=== PATIENT | female | born 1995 | race African-American/Black ===

== ENCOUNTER 2016-06-29 21:38 | Emergency (ER) | payer OTHER | END 2016-06-30 00:17 | disposition home or self-care (01) | LOC: ER1 21:38 | DX: J11.1 Influenza due to unidentified influenza virus with other respiratory manifestations (principal) | CPT/HCPCS: 87081; 87880; 99283 ==

== ENCOUNTER 2020-05-09 14:22 | Emergency (ER) | payer OTHER ==
[~2020-05-09 14:22] MED LIST: IBUPROFEN600 MG PO; LODINE CAP 300300 MG PO; MACROBID 100 M100 MG PO; NORFLEX 100 MG100 MG PO; TORADOL 10 MG T10 MG PO; ZOFRAN ODT 4 MG4 MG SL; ZOLOFT100 MG PO
[2020-05-09] MEDS ORDERED: NAPROSYN500 MG PO (17:18)
[2020-05-09] MEDS ORDERED: CYCLOBENZAPRINE10 MG PO (17:18)
== END 2020-05-09 17:56 | disposition home or self-care (01) ==
LOC: ER1 14:22
DX: S06.9X9A Unspecified intracranial injury with loss of consciousness of unspecified duration, initial encounter (principal); S39.012A Strain of muscle, fascia and tendon of lower back, initial encounter; F17.210 Nicotine dependence, cigarettes, uncomplicated; V43.52XA Car driver injured in collision with other type car in traffic accident, initial encounter; Y92.410 Unspecified street and highway as the place of occurrence of the external cause
CPT/HCPCS: 70450; 72100; 96372; 99284; J1885

== ENCOUNTER 2021-07-28 14:25 | Emergency (ER) | payer OTHER ==
[~2021-07-28 14:25] MED LIST changes: +CYCLOBENZAPRINE10 MG PO; +NAPROSYN500 MG PO
[2021-07-28 16:13] LABS: HEMOGLOBIN 11.8 gm/dl (12.3-15.3); RED BLOOD COUNT 3.66 M/UL (4.00-5.10); WHITE BLOOD COUNT 5.3 K/UL (4.5-11.0)
[2021-07-28 16:37] LABS: BUN/CREATININE RATIO 18 (0-10)
[2021-07-28] MEDS ORDERED: BUTALB-ACETAMI1 EAC1 PO (19:36)
[2021-07-28] MEDS ORDERED: PERCOCET 5/325 T1 EA PO (19:36)
[2021-07-28] MEDS ORDERED: ONDANSETRON ODT4 MG SL (19:46)
[2021-07-28] MEDS ORDERED: CEPHALEXIN500 M1 PO (19:46)
== END 2021-07-28 20:22 | disposition home or self-care (01) ==
LOC: ER1 14:25
PROVIDERS: Emergency Medicine
DX: O90.89 Other complications of the puerperium, not elsewhere classified (principal); G97.82 Other postprocedural complications and disorders of nervous system; G93.89 Other specified disorders of brain; N39.0 Urinary tract infection, site not specified; F17.200 Nicotine dependence, unspecified, uncomplicated; Z20.822 Contact with and (suspected) exposure to COVID-19; Y84.8 Other medical procedures as the cause of abnormal reaction of the patient, or of later complication, without mention of misadventure at the time of the procedure
CPT/HCPCS: 70450; 80053; 81001; 85025; 87086; 96374; 96375; 99284; J1200; J1885; J2270; J2765; U0002

== ENCOUNTER → 2021-08-18 | Outpatient (CLI) | payer OTHER ==
[~2021-08-18] MED LIST changes: +BUTALB-ACETAMI1 EAC1 PO; +CEPHALEXIN500 M1 PO; +ONDANSETRON ODT4 MG SL; +PERCOCET 5/325 T1 EA PO
== END ==
LOC: KOH-I 14:59
DX: S22.000A Wedge compression fracture of unspecified thoracic vertebra, initial encounter for closed fracture (principal); M47.814 Spondylosis without myelopathy or radiculopathy, thoracic region
CPT/HCPCS: 72146

== ENCOUNTER 2021-08-31 21:06 | Emergency (ER) | payer OTHER | END 2021-09-01 01:50 | disposition left against medical advice (07) | LOC: ER1 21:06 | DX: Z53.21 Procedure and treatment not carried out due to patient leaving prior to being seen by health care provider (principal) ==